=== PATIENT | male | born 1995 | race Hispanic/Latino ===

== ENCOUNTER 2018-08-17 03:03 | Emergency (ER) | payer OTHER ==
--- NOTE | 2018-08-17 04:11 | C.PDOC ---
History Of Present Illness 22 year old male presents to the ED c/o pain and swelling to his right middle finger. 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 Patient states his tetanus is up to date. Patient denies headache, head injury, weakness, numbness. Time Seen by Provider: 08/17/18 03:31 Chief Complaint (Nursing): Abnormal Skin Integrity History Per: Patient History/Exam Limitations: no limitations Onset/Duration Of Symptoms: Hrs Current Symptoms Are (Timing): Still Present Location Of Injury: Right: Hand Quality Of Symptoms: Painful, Swollen Recent travel outside of the [place]: No Additional History Per: Patient Past Medical History Reviewed: Historical Data, Nursing Documentation, Vital Signs Vital Signs: Last Vital Signs Temp 98.2 F 08/17/18 03:14 Pulse 63 08/17/18 03:14 Resp 18 08/17/18 03:14 BP 162/100 H 08/17/18 03:14 Pulse Ox 99 08/17/18 03:14 - Medical History PMH: No Chronic Diseases Surgical History: No Surg Hx Family History: States: Unknown Family Hx - Social History Hx Alcohol Use: No Hx Substance Use: No - Immunization History Hx Tetanus Toxoid Vaccination: Yes (4 yrs ago) Hx Influenza Vaccination: Yes Hx Pneumococcal Vaccination: No Review Of Systems Constitutional: Negative for: Fever, Chills Cardiovascular: Negative for: Chest Pain Respiratory: Negative for: Shortness of Breath Gastrointestinal: Negative for: Nausea, Vomiting, Abdominal Pain Musculoskeletal: Positive for: Hand Pain Skin: Positive for: Other (laceration) Neurological: Negative for: Weakness, Numbness, Headache Physical Exam - Physical Exam Appears: Non-toxic, No Acute Distress Skin: Normal Color, Warm, Dry Head: Atraumatic, Normacephalic Eye(s): bilateral: Normal Inspection Neck: Normal ROM, Supple Extremity: Normal ROM (right 3rd finger limited due to pain and swelling), Tenderness (right 3rd finger PIP), Capillary Refill (< 2 seconds), Swelling (right 3rd finger PIP), Other (right 3rd finger, 1 cm superficial laceration at the PIP of 3rd finger. No deformity or FB seen. ) Pulses: Left Radial: Normal, Right Radial: Normal Neurological/Psych: Oriented x3, Normal Speech, Normal Cognition, Normal Motor, Normal Sensation Gait: Steady ED Course And Treatment O2 Sat by Pulse Oximetry: 99 (ON RA) Pulse Ox Interpretation: Normal - Other Rad Right hand X-Ray X-Ray: Interpreted by Me, Viewed By Me Interpretation: No fracture or dislocation Progress Note: Plan: - Motrin 800 mg PO. - Right hand X-Ray. Imaging results were discussed with patient. Patient's placed on splint for support. Patient tolerated procedure well. Patient advised to follow up with hand doctor. Laceration - Laceration Repair Right 3rd finger PIP Wound Length (In cm): 1.5 Description Of Wound: Linear Wound Cleansed With: Betadine, Sterile Saline Wound Examination: Irrigated With Saline, No FB With Wound Exploration, No Tendon Injury With Wound Exploration Wound Closure: Steri Strips (x 2), Skin Glue Wound Complexity: Simple (Pt tolerated well) Disposition Counseled Patient/Family Regarding: Diagnosis, Need For Followup, Rx Given - Disposition Referrals: Jovany Diaz MD [Staff Provider] - Disposition: HOME/ ROUTINE Disposition Time: 04:38 Condition: STABLE Additional Instructions: Please keep area clean and dry Take motrin for pain Follow up with Hand doctor foe evaluation Apply bacitracin oint as needed after 24 hrs Return to ER if finger swelling, redness, or worse Instructions: Laceration Repair With Glue (DC), Common Finger Injuries (DC) Forms: [facility] (Algerian), Work Excuse - Clinical Impression Clinical Impression: Laceration of finger of right hand, Finger contusion - 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 - Scribe Statement The provider has reviewed the documentation as recorded by the Scribe Chuck Smith All medical record entries made by the Scribe were at my direction and personally dictated by me. I have reviewed the chart and agree that the record accurately reflects my personal performance of the history, physical exam, medical decision making, and the department course for this patient. I have also personally directed, reviewed, and agree with the discharge instructions and disposition.
[2018-08-17 04:44] VITALS: BP 151/88; PULSE 80; RESP 16; TEMP 98.7
--- NOTE | 2018-08-17 09:04 | RAD ---
PROCEDURE: Right Hand Radiographs. HISTORY: blunt trauma right 3rd finger COMPARISON: None. TECHNIQUE: 3 views obtained. FINDINGS: BONES: No acute cardiopulmonary disease appreciated. JOINTS: Normal. No osteoarthritic changes. SOFT TISSUES: Normal. OTHER FINDINGS: None. IMPRESSION: Unremarkable right hand radiographs.
[2018-08-17 23:16] VITALS: O2SAT 99
== END 2018-08-17 04:49 | disposition home or self-care (01) ==
LOC: C.ER 03:03
DX: S61.212A Laceration without foreign body of right middle finger without damage to nail, initial encounter (principal); S60.031A Contusion of right middle finger without damage to nail, initial encounter; W22.8XXA Striking against or struck by other objects, initial encounter; Y92.89 Other specified places as the place of occurrence of the external cause; Y99.0 Civilian activity done for income or pay